=== PATIENT | female | born 1935 | race Two or more races ===

== ENCOUNTER 2019-01-21 10:16 | Emergency (ER) | payer MEDICARE, MEDICAID ==
[~2019-01-21] VITALS: Ht 157.5 cm; Wt 92.0 kg
[2019-01-21 10:43] VITALS: BP 108/75
[2019-01-21] MEDS ORDERED: ACETAMINOPHEN 500MG TABLET PO ONE (11:30)
== END 2019-01-21 12:18 | disposition home or self-care (01) ==
LOC: ER 10:16
DX: K08.89 Other specified disorders of teeth and supporting structures (principal); T78.40XA Allergy, unspecified, initial encounter; L29.9 Pruritus, unspecified
CPT/HCPCS: 99282